=== PATIENT | female | born 2000 | race Caucasian/White ===

== ENCOUNTER 2025-03-20 14:33 | Outpatient (AMB) | payer BC, SELFPAY ==
--- NOTE | 2025-03-20 14:40 | GYNCLNT_ITS ---
Vital Signs 03/20/25 14:41 Height 1.5 m Height Method Stated Weight 77.337 kg Weight Measurement Method Standing Scale BMI 34.4 BP 127/70 Blood Pressure Source Automatic Cuff Blood Pressure Location Right Upper Arm Position Sitting Respiration 17 Pulse 81 Pulse Source Monitor Temp 98.2 F Temp Source Temporal Artery Scan Pulse Oximetry (%) 98 Oxygen Delivery Method Room Air Allergies/Home Meds Allergies & Medications Allergies NKA* Allergy (Uncoded 03/20/25 14:43) Intake Visit Data Collection New Patient or Established: New Patient (never been to [facility]) Reason for Visit:: REFERRAL CONSULTATION NEXPLANON REMOVAL Seen by Clinical Staff ONLY (RN/MA): No Public Defender Required: No Do You Feel Safe at Home: Yes Authorities Contacted: N/A PCP or OBGYN visit in last 3 months: No Hx Now: No Are you currently on any form of Control: Yes Pain Present Currently: No Pain Scale Used: Candelaria-Barcenas/Numerical Pain scale:: 0 Smoking Status Smoking Status: Never smoker 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 1. Little interest or pleasure in doing things: not at all 2. Feeling down, depressed, or hopeless: not at all Total score: 0 PHQ-9 3. Trouble falling or staying asleep, or sleeping too much: Not at all 4. Feeling tired or having little energy: Not at all 5. Poor appetite or overeating: Not at all 6. Feeling bad about yourself - or that you are a failure or have let yourself or your family down: Not at all 7. Trouble concentrating on things, such as reading the newspaper or watching television: Not at all 8. Moving or speaking so slowly that other people could have noticed? - Or the opposite - being so fidgety or restless that you have been moving around a lot more than usual: not at all 9. Thoughts that you would be better off or of hurting yourself in some way: Not at all Total score: 0 If you checked off any problems, how difficult have these problems made it for you to do your work, take care of things at home, or get along with other people?: not difficult at all Source: Developed by Drs. Alejandro Spencer, Saida Kirby, Ozzy Reed and colleagues, with an educational leander from [employer]. Depression screen completed yes Social History Living Situation History Marital Status: Life Partner Lives With: Significant Other Housing: House Tobacco History Smoking Status: Never smoker Second Hand Smoke Exposure: No Alcohol History Alcohol Intake: Current Alcohol Intake Frequency: holidays/special occasions only Domestic Abuse History Do You Feel Safe at Home: Yes History of Present Illness HPI Narrative 24-year-old 0 para 0 for Nexplanon removal consult. Patient is having Nexplanon x 3 years. She has had no interval complaints with it. Denies ACHES. Patient has had no menses for the last 3 years due to the Nexplanon. Patient has previous history of irregular. Sometimes she skips a month. Denies social habits. Denies surgery. Denies chronic illness. 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 Nexplanon placed in left upper arm. And Nexplanon was easily palpated General Limitations: no limitations General Appearance: alert, in no apparent distress, comfortable, cooperative, healthy appearing, well developed and well groomed Head Head exam: atraumatic, normocephalic and normal inspection Chest Chest inspection: Present normal inspection and symmetric chest wall rise Resp Respiratory exam: Present normal lung sounds bilaterally Card Cardiovascular exam: Present regular rate, normal rhythm and normal heart sounds Abdominal Abdominal exam: Present soft and normal bowel sounds Office Procedures OBC Clinic LOC & Office Proc's Nursing/Assessment Patient Status: Initial/New Patient OB Clinic Nursing Assessment: Medication Reconciliation, Update PMH in EMR and Vital Signs OB Clinic Coordination of Care: Complex Care and Chronic Disease 1-5, Education Complex Pt/Fam, Consent,records obtained, informed consent, 2-3 Insurance Autorizations needed, Results/Orders obtained and Staff clarify orders New Patient Charge New Patient Point Assignment: 1114 New Patient 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 Discussed Nexplanon removal procedure. Patient to return at next available appointment for Nexplanon removal. I offered contraception with Nexplanon was removed and patient declined. She is thinking about a Additional Plan Follow Up: 2 Weeks (nexplanon removal)
[2025-03-20 14:41] VITALS: BP 127/70; PULSE 81; RESP 17; TEMP 36.8; O2SAT 98; BMI 34.4
== END 2025-03-20 15:01 | disposition home or self-care (01) ==
LOC: HODSOBC 14:33
PROVIDERS: Supervising Provider Advanced Practice Midwife; Visit Provider Advanced Practice Midwife
DX: Z30.46 Encounter for surveillance of implantable subdermal contraceptive (principal)
CPT/HCPCS: 99203; G0463

== ENCOUNTER 2025-04-11 13:28 | Outpatient (AMB) | payer BC, SELFPAY ==
--- NOTE | 2025-04-11 13:43 | GYNCLNT_ITS ---
Vital Signs 04/11/25 13:53 Height 1.5 m Height Method Stated Weight 77.167 kg Weight Measurement Method Standing Scale BMI 34.2 BP 109/69 Blood Pressure Source Automatic Cuff Blood Pressure Location Right Upper Arm Position Sitting Respiration 18 Pulse 69 Pulse Source Monitor Temp 97.8 F Temp Source Temporal Artery Scan Pulse Oximetry (%) 99 Oxygen Delivery Method Room Air Allergies/Home Meds Allergies & Medications Allergies NKA* Allergy (Uncoded 04/11/25 13:53) Medication Reconciliation No Known Home Medications 04/11/25 [History Confirmed 04/11/25] Intake Visit Data Collection New Patient or Established: Established Patient (seen at [facility] within 3 years) Reason for Visit:: NEXPLANON REMOVAL Seen by Clinical Staff ONLY (RN/MA): No Heel Pricker Required: No Do You Feel Safe at Home: Yes Authorities Contacted: N/A PCP or OBGYN visit in last 3 months: Yes Date of Last PCP or OBGYN visit: 03/20/25 Hx Now: No Are you currently on any form of Control: No Pain Present Currently: No Pain Scale Used: Candelaria-Barcenas/Numerical Pain scale:: 0 Smoking Status Smoking Status: Never smoker Immunizations Flu Vaccine in the Last 12 Months: No Flu Vaccine Exclusion Criteria: No Exclusion Criteria 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 1. Little interest or pleasure in doing things: not at all 2. Feeling down, depressed, or hopeless: not at all Total score: 0 PHQ-9 3. Trouble falling or staying asleep, or sleeping too much: Not at all 4. Feeling tired or having little energy: Not at all 5. Poor appetite or overeating: Not at all 6. Feeling bad about yourself - or that you are a failure or have let yourself or your family down: Not at all 7. Trouble concentrating on things, such as reading the newspaper or watching television: Not at all 8. Moving or speaking so slowly that other people could have noticed? - Or the opposite - being so fidgety or restless that you have been moving around a lot more than usual: not at all 9. Thoughts that you would be better off or of hurting yourself in some way: Not at all Total score: 0 If you checked off any problems, how difficult have these problems made it for you to do your work, take care of things at home, or get along with other people?: not difficult at all Source: Developed by Drs. Alejandro Spencer, Saida Kirby, Ozzy Reed and colleagues, with an educational leander from [employer]. Depression screen completed yes Social History Living Situation History Marital Status: Life Partner Lives With: Significant Other Housing: House Tobacco History Smoking Status: Never smoker Second Hand Smoke Exposure: No Alcohol History Alcohol Intake: Current Alcohol Intake Frequency: holidays/special occasions only Domestic Abuse History Do You Feel Safe at Home: Yes History of Present Illness HPI Narrative 24-year-old 0 para 0 for Nexplanon removal. Patient had Nexplanon for 3 years and she would like to take it out. Complains of spotting towards the end of the 3 years. She has not had regular menses with the Nexplanon. Denies social habits. Denies surgeries. Denies existing chronic illnesses. 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 I asked patient if she plan to using control and she said for right now no Review of Systems Review of Systems Systems Reviewed: All systems reviewed, normal except as documented Exam General Limitations: no limitations General Appearance: alert, in no apparent distress, comfortable, cooperative, healthy appearing, well developed and well groomed Head Head exam: atraumatic, normocephalic and normal inspection ENT ENT exam: Present normal exam, normal oropharynx and mucous membranes moist Neck Neck exam: Present normal inspection, full ROM and trachea midline Chest Chest inspection: Present normal inspection and symmetric chest wall rise Resp Respiratory exam: Present normal lung sounds bilaterally Card Cardiovascular exam: Present regular rate, normal rhythm and normal heart sounds Abdominal Abdominal exam: Present soft and normal bowel sounds Psych Psychiatric exam: Present normal affect and normal mood Office Procedures OBC Clinic LOC & Office Proc's Nursing/Assessment Patient Status: Established Patient OB Clinic Nursing Assessment: Medication Reconciliation, Update PMH in EMR and Vital Signs OB Clinic Coordination of Care: Complex Care and Chronic Disease 1-5, Education Complex Pt/Fam, Consent,records obtained, informed consent, Results/Orders obtained and Staff clarify orders Miscellaneous Interventions: Blood/Urine Collection Established Patient Charge Established Patient Point Assignment: 125 Established Patient Point Charge: EP Level 4 (120-155) In Clinic Bedside tests/procedures Bedside HCG: Yes In Clinic Procedures Minor Surgical Procedure: Yes Results Urine HCG Urine HCG Negative Last Edit by Sonja Silva MA on 04/11/25 13:5 8 Assessment & Plan Diagnosis / Problem List (1) Nexplanon removal: Status: Acute Plan Consent for Nexplanon removal. I reviewed method and side effects and danger signs symptoms and effectiveness. I discussed other control options. Discussed wound care. Keep the incision dry and clean for 3 days. Condoms as needed for contraception. Return as needed to evaluate incision. Additional Plan Follow Up: 3 Weeks (nexplanon f/u) Control Implant/Removal Diaphragm Fitting Diaphragm fitting: No Removal of Contraceptive Device Ambulatory Dept Location: OB Clinic Removal of Contraceptive Device: Yes (For Nexplanon removal) Removal of IUD Removal of IUD: No Procedure Notes Pre-op diagnosis general: Nexplanon removal Post-op diagnosis procedure note: Same Consent obtained: yes-verbal and yes-written Consent comments: Nexplanon x 3 years. Patient is unsure what she is for control. She has no interval complaints. She has been spotting the last couple of weeks. Procedure Notes:: Timeout per protocol. Negative test. Betadine cleanse of the removal site x 3. 2 cc lidocaine added at removal site. 1/8 cm incision made with scalpel. At the distal end of the Nexplanon capsule in the left forearm. Nexplanon capsule was removed intact using a peon. Small amount of bleeding that stopped with pressure. Band-Aid placed. And then pressure dressing was applied.
[2025-04-11 13:53] VITALS: BP 109/69; PULSE 69; RESP 18; TEMP 36.6; O2SAT 99; BMI 34.2
== END 2025-04-11 14:21 | disposition home or self-care (01) ==
LOC: HODSOBC 13:28
PROVIDERS: Supervising Provider Advanced Practice Midwife; Visit Provider Advanced Practice Midwife
DX: Z30.46 Encounter for surveillance of implantable subdermal contraceptive (principal); Z32.02 Encounter for pregnancy test, result negative
CPT/HCPCS: 11982; 81025; 96372; 99214; J3490; G0463